=== PATIENT | female | born 1970 | race Caucasian/White ===

== ENCOUNTER 2025-06-21 08:12 | Day surgery (SDC) | payer BC ==
[~2025-06-21] VITALS: Ht 157.5 cm; Wt 112.0 kg
[~2025-06-21 08:12] MED LIST: AMLO1TAB24 PO; LOSA50TA28 PO; METO25TA4 PO; NAPR-885 PO; SYNT175T2 PO; THERTAB52 PO
[2025-06-21] MEDS ORDERED: LR 1,000 ML IV SCH ×2 (08:55→11:10)
[2025-06-21] MEDS ORDERED: ONDANSETRON 4MG 2ML VIAL As Ordered ONE (09:36)
[2025-06-21] MEDS ORDERED: LIDOCAINE 2% 100 MG/5 ML SDV (FOR ANES.) As Ordered ONE (09:36)
[2025-06-21] MEDS ORDERED: dexAMETHasone 4 MG/ML 1 ML VIAL As Ordered ONE (09:36)
[2025-06-21] MEDS ORDERED: MIDAZOLAM INJ 2 MG/2 ML VIAL As Ordered ONE (09:40)
[2025-06-21] MEDS ORDERED: ACETAMINOPHEN 1000MG/100ML IV BAG As Ordered ONE (10:26)
[2025-06-21] MEDS: METHYLENE BLUE 0.5% (5 MG/ML) 10 ML AMP As Ordered ONE (10:32)
[2025-06-21] MEDS: EPINEPHrine 1 MG/ML INJ 30 ML MD-VIAL As Ordered ONE (10:32)
[2025-06-21] MEDS: CIPRODEX OTIC SUSP 7.5 ML As Ordered ONE (10:33)
[2025-06-21] MEDS ORDERED: HYDROMORPHONE HCL 0.5 MG/0.5 ML SYRINGE IV PRN (11:10)
[2025-06-21 12:16] VITALS: TEMP 97.2; O2SAT 99
[2025-06-21 12:21] VITALS: BP 143/72
== END 2025-06-21 12:22 | disposition home or self-care (01) ==
LOC: M SDC 08:12
PROVIDERS: ATTEND Otolaryngology
DX: H69.81 Other specified disorders of Eustachian tube, right ear (principal); H73.891 Other specified disorders of tympanic membrane, right ear; E03.9 Hypothyroidism, unspecified; I10 Essential (primary) hypertension; E78.00 Pure hypercholesterolemia, unspecified; Z79.899 Other long term (current) drug therapy; Z79.890 Hormone replacement therapy; Z88.1 Allergy status to other antibiotic agents; Z87.891 Personal history of nicotine dependence; Z90.89 Acquired absence of other organs
CPT/HCPCS: 69436; 69705; 81025; C1726; J0131; J0169; J1100; J2250; J2405; J3010; Q9968